=== PATIENT | female | born 1970 | race Caucasian/White ===

== ENCOUNTER 2017-10-26 21:26 | Inpatient (IN) | payer OTHER ==
[~2017-10-26] VITALS: Ht 165.1 cm; Wt 93.5 kg
[2017-10-26 22:09] VITALS: BP 138/84; PULSE 103; RESP 22; TEMP 97.7; O2SAT 91
[2017-10-26 22:25] VITALS: O2SAT 94
[2017-10-26] MEDS: RESP: ALBUTEROL 2.5 MG/IPRATROPIUM 0.5 MG NEB (SCH) INH ×2 (22:26→22:27)
[2017-10-26 22:47] VITALS: O2SAT 96
[2017-10-26 22:50] LABS: AUTOMATED NEUTROPHIL # 7.9 TH/MM3 (1.8-7.7); BASOPHIL # 0.1 TH/MM3 (0-0.2); BASOPHIL % 1.2 % (0.0-2.0); EOSINOPHIL # 0.2 TH/MM3 (0-0.4); EOSINOPHIL % 1.8 % (0.0-4.0); HEMATOCRIT 39.7 % (35.0-46.0); HEMOGLOBIN 13.6 GM/DL (11.6-15.3); LYMPH % 19.5 % (9.0-44.0); LYMPHOCYTE # 2.2 TH/MM3 (1.0-4.8); MEAN CELL VOLUME 100.1 FL (80.0-100.0); MEAN CORPUSCULAR HEMOGLOBIN 34.3 PG (27.0-34.0); MEAN CORPUSCULAR HGB CONC 34.3 % (32.0-36.0); MEAN PLATELET VOLUME 6.6 FL (7.0-11.0); MONO % 8.2 % (0.0-8.0); MONOCYTE # 0.9 TH/MM3 (0-0.9); NEUT % 69.3 % (16.0-70.0); PLATELET COUNT 359 TH/MM3 (150-450); RED BLOOD COUNT 3.97 MIL/MM3 (4.00-5.30); RED CELL DISTRIBUTION WIDTH 12.6 % (11.6-17.2); WHITE BLOOD COUNT 11.4 TH/MM3 (4.0-11.0)
--- NOTE | 2017-10-26 22:53 | PD ---
HPI Chief Complaint: Respiratory Symptoms Time Seen by Provider: 22:38 Travel History International Travel<30 days: No Contact w/Intl Traveler<30days: No Traveled to known affect area: No History of Present Illness HPI The patient is a 47 year old female who presents to the [facility] emergency department with a history of cough, congestion that began 4-6 weeks ago. 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 She reports that she briefly improved and then had recurrence of symptoms. She reports that over the last 2 weeks her symptoms have been much worse. She reports that she feels short of breath with exertion. She reports that her cough is productive of yellow sputum. The patient reports having facial pressure over her maxillary sinuses. She reports having a yellow nasal discharge. She reports having a sore throat with postnasal drip. The patient reports that she smokes 1 pack of cigarettes daily. She denies having any known fevers. She reports having chest tightness, however no other chest pain. On review of systems otherwise, she denies having any neck pain or stiffness, abdominal pain, vomiting, diarrhea , urinary symptoms, or neurologic symptoms. 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 ?: Not Past Surgical History Narrative Surgical The patient's past surgical history is significant for bilateral tubal ligation. Social History Alcohol Use: No Tobacco Use: Yes (1 pack per day) Substance Use: No Allergies-Medications (Allergen,Severity, Reaction): Coded Allergies: No Known Allergies (Unverified , 10/26/17) Reported Meds & Prescriptions Reported Meds & Active Scripts Active Reported Valtrex (Valacyclovir HCl) 1,000 Mg Tab Unknown Dose PO BID Narrative Medication Valtrex, Flonase, Zyrtec Review of Systems Except as stated in HPI: all other systems reviewed are Neg General / Constitutional: No: Fever Eyes: No: Visual changes HENT: Positive: Rhinorrhea, Congestion, No: Headaches Cardiovascular: Positive: Dyspnea on exertion, No: Chest Pain or Discomfort Respiratory: Positive: Cough, Shortness of Breath, Wheezing, Sneezing Gastrointestinal: No: Nausea, Vomiting, Diarrhea, Abdominal Pain Genitourinary: No: Dysuria Musculoskeletal: No: Pain Skin: No Rash Neurologic: No: Weakness, Focal Abnormalities, Change in Mentation, Slurred Speech, Sensory Disturbance Psychiatric: No: Depression Endocrine: No: Polydipsia Hematologic/Lymphatic: No: Easy Bruising Physical Exam Narrative General: The patient is a well-developed well-nourished female in no acute distress. Head and Neck exam: Head is normocephalic atraumatic. Eyes: EOMI, pupils are equal round and reactive to light. Nose: Midline septum with erythematous edematous nasal mucosa and a clear nasal discharge. Mouth: Dentition unremarkable. Moist mucus membranes. Posterior oropharynx is not erythematous. No tonsillar hypertrophy. Uvula midline. Airway patent. Neck: No palpable lymphadenopathy. No nuchal rigidity. No thyromegaly. Cardiovascular: Sinus tachycardia in the low 100 without murmurs, gallops, or rubs. No pulse deficit to the extremities on simultaneous auscultation and palpation of her radial artery. Lungs: Soft expiratory wheezes are audible throughout bilateral lung durant, no rhonchi , crackles are intermittently audible bilaterally and seem to clear with coughing. Abdomen: Soft, without tenderness to palpation in all 4 quadrants of the abdomen. No guarding, rebound, or rigidity. Normal bowel sounds are audible. No tenderness on palpation of McBurney's point. Extremities: No clubbing, cyanosis, or edema. 2+ pulses in all 4 extremities. No calf tenderness on palpation. Back: No spinous process tenderness to palpation. No costovertebral angle tenderness to palpation. Neurologic Exam: Grossly nonfocal. Skin Exam: No rash noted. Intact skin that is warm and dry. Data Data Last Documented VS Vital Signs Date Time Temp Pulse Resp B/P (MAP) Pulse Ox O2 Delivery O2 Flow Rate FiO2 10/27/17 01:05 83 Room Air 10/26/17 22:47 2.00 10/26/17 22:09 97.7 103 22 138/84 (102) Orders Orders Complete Blood Count With Diff (10/26/17 22:12) Basic Metabolic Panel (Bmp) (10/26/17 22:12) B-Type Natriuretic Peptide (10/26/17 22:12) Act Partial Throm Time (Ptt) (10/26/17 22:12) Prothrombin Time / Inr (Pt) (10/26/17 22:12) Magnesium (Mg) (10/26/17 22:12) Ckmb (Isoenzyme) Profile (10/26/17 22:12) Troponin I (10/26/17 22:12) Electrocardiogram (10/26/17 22:12) Chest, Pa & Lat (10/26/17 22:12) Albuterol-Ipratropium Neb (Duoneb Neb) (10/26/17 22:15) Sodium Chloride 0.9% Flush (Ns Flush) (10/26/17 23:15) Methylprednisolone So Succ Inj (Solumedr (10/26/17 23:15) Ceftriaxone Inj (Rocephin Inj) (10/26/17 23:15) Azithromycin Inj (Zithromax Inj) (10/26/17 23:15) CKMB (10/26/17 22:35) CKMB% (10/26/17 22:35) Ct Pulmonary Angiogram (10/27/17 01:04) Labs Laboratory Tests Test 10/26/17 22:35 White Blood Count 11.4 TH/MM3 Red Blood Count 3.97 MIL/MM3 Hemoglobin 13.6 GM/DL Hematocrit 39.7 % Mean Corpuscular Volume 100.1 FL Mean Corpuscular Hemoglobin 34.3 PG Mean Corpuscular Hemoglobin Concent 34.3 % Red Cell Distribution Width 12.6 % Platelet Count 359 TH/MM3 Mean Platelet Volume 6.6 FL Neutrophils (%) (Auto) 69.3 % Lymphocytes (%) (Auto) 19.5 % Monocytes (%) (Auto) 8.2 % Eosinophils (%) (Auto) 1.8 % Basophils (%) (Auto) 1.2 % Neutrophils # (Auto) 7.9 TH/MM3 Lymphocytes # (Auto) 2.2 TH/MM3 Monocytes # (Auto) 0.9 TH/MM3 Eosinophils # (Auto) 0.2 TH/MM3 Basophils # (Auto) 0.1 TH/MM3 CBC Comment DIFF FINAL Differential Comment Prothrombin Time 9.4 SEC Prothromb Time International Ratio 0.9 RATIO Activated Partial Thromboplast Time 34.1 SEC Blood Urea Nitrogen 3 MG/DL Creatinine 0.53 MG/DL Random Glucose 80 MG/DL Calcium Level 8.6 MG/DL Magnesium Level 1.9 MG/DL Sodium Level 132 MEQ/L Potassium Level 4.0 MEQ/L Chloride Level 98 MEQ/L Carbon Dioxide Level 23.6 MEQ/L Anion Gap 10 MEQ/L Estimat Glomerular Filtration Rate 123 ML/MIN Total Creatine Kinase 225 U/L Creatine Kinase MB 5.4 NG/ML Creatine Kinase MB % 2.4 % Troponin I LESS THAN 0.02 NG/ML B-Type Natriuretic Peptide 31 PG/ML MDM Medical Decision Making Medical Screen Exam Complete: Yes Emergency Medical Condition: Yes Medical Record Reviewed: Yes Interpretation(s) Last Impressions Chest X-Ray 10/26/172211 Signed Impressions: Service Date/Time: Thursday, October 26, 2017 23:56 - CONCLUSION: No acute disease. Benjamin Glez MD Differential Diagnosis Pneumonia, versus COPD, versus new onset congestive heart failure, versus acute coronary syndrome, versus pulmonary embolism Narrative Course During the course of the patient's emergency department visit, the patient's history, examination, and differential diagnosis were reviewed with the patient. The patient was placed on a cardiac cath tech with oximetry and frequent blood pressure monitoring. The patient had IV access obtained and blood work sent for analysis. The patient's initial room air O2 saturation was 91%. The patient was provided duo nebs 3, Solu-Medrol 125 mg IV, Rocephin 2 g IV, Zithromax 500 mg IV. The patient was continued on 2 L nasal cannula O2. The patient's laboratory studies were reviewed and remarkable for a white count of 11.4, hemoglobin 13.6, platelets 359 with 8.2 monocytes, CMP is remarkable for sodium of 132, BUN 3, CPK 225, MB percent 2.4, magnesium 1.9, BNP is 31, PT 9.4, PTT 34.1 Radiology studies were reviewed and remarkable for a chest x-ray that shows no acute cardiopulmonary disease. This was discontinued in order for the patient to go to the bathroom. Unfortunately, the patient again desaturated down to 83%. The patient was placed on 2 L nasal cannula O2 again. CTA to rule out PE has also been ordered. The patient's results were discussed with the patient, including the plan of care. I explained that further testing and/ or monitoring is indicated based on the patient's history, examination, and/ or laboratory findings. Therefore, I recommended admission for additional evaluation. The patient expressed understanding and was agreeable with this plan. The patient was admitted to the hospital in guarded condition and sent to a bed under the care of the [facility] service. Physician Communication Physician Communication The patient's case including history, pertinent physical examination findings, and laboratory studies were discussed with Dr. Lopez. It was agreed that the patient would be admitted to the [facility] service. Diagnosis Primary Impression: COPD exacerbation Additional Impression: Hypoxemia Admitting Information Admitting Physician Requests: Admit Estelita Stephenson MD Oct 26, 2017 22:53
[2017-10-26 23:02] LABS: INTERNATIONAL NORMALIZED RATIO 0.9 RATIO; PROTHROMBIN TIME - PATIENT 9.4 SEC (9.8-11.6)
[2017-10-26 23:12] LABS: BICARBONATE 23.6 MEQ/L (21.0-32.0); BLOOD UREA NITROGEN 3 MG/DL (7-18); CALCIUM 8.6 MG/DL (8.5-10.1); CHLORIDE 98 MEQ/L (98-107); CREATININE 0.53 MG/DL (0.50-1.00); GLOMERULAR FILTRATION RATE 123 ML/MIN (>89); GLUCOSE,RANDOM 80 MG/DL (74-106); MAGNESIUM 1.9 MG/DL (1.5-2.5); SODIUM (NA) 132 MEQ/L (136-145)
[2017-10-26] MEDS ORDERED: cefTRIAXone INJ 2,000 MG in SODIUM CHLORIDE 0.9% INJ 100 ML IV ONE (23:15)
[2017-10-26] MEDS ORDERED: SODIUM CHLORIDE 0.9% FLUSH 10 ML FLUSH IVF PRN (23:15)
[2017-10-26] MEDS ORDERED: AZITHROMYCIN INJ 500 MG in SODIUM CHLOR 0.9% 250 ML INJ 250 ML IV ONE (23:15)
[2017-10-26] MEDS ORDERED: methylPREDNISolone SOD SUCC 125 MG/2 ML VIAL IV PUSH ONE (23:15)
[2017-10-26 23:17] LABS: TROPONIN I LESS THAN 0.02 NG/ML (0.02-0.05)
[2017-10-26] MEDS ORDERED: VALT1TAB PO (23:21)
[2017-10-27] VITALS (19 sets, daily range): BP systolic 148–206; BP diastolic 73–102; PULSE 59–116; RESP 16–21; TEMP 97.3–99; O2SAT 83–98
--- NOTE | 2017-10-27 00:09 | RADRPT ---
EXAM DATE/TIME: 10/26/2017 23:56 [facility] COMPARISON: No previous studies available for comparison. INDICATIONS : Shortness of breath. MEDICAL HISTORY : None. SURGICAL HISTORY : None. ENCOUNTER: Initial ACUITY: 1 day PAIN SCORE: 0/10 LOCATION: Bilateral chest FINDINGS: PA and lateral views of the chest demonstrate the lungs to be symmetrically aerated without evidence of mass, infiltrate or effusion. The cardiomediastinal contours are unremarkable. Osseous structure s are intact. CONCLUSION: No acute disease. Benjamin Glez MD on October 27, 2017 at 0:06 Board Certified Radiologist. This report was verified electronically.
[2017-10-27] MEDS ORDERED: RESP: ALBUTEROL 2.5 MG/3 ML NEB (PRN) INH (01:15)
[2017-10-27] MEDS ORDERED: IOHEXOL 350 MG/ML 10 ML VIAL (for RAD DIAG) IVCONTRAST ONE (02:12)
--- NOTE | 2017-10-27 02:22 | RADRPT ---
EXAM DATE/TIME: 10/27/2017 02:01 [facility] COMPARISON: No previous studies available for comparison. INDICATIONS : Shortness of breath, cough and congestion. IV CONTRAST: 75 cc Omnipaque 350 (iohexol) IV RADIATION DOSE: 10.74 CTDIvol (mGy) MEDICAL HISTORY : None SURGICAL HISTORY : None. ENCOUNTER: Initial ACUITY: 1 month PAIN SCALE: 0/10 LOCATION: chest TECHNIQUE: Volumetric scanning of the chest was performed using a pulmonary embolism protocol MIP images were re constructed. Using automated exposure control and adjustment of the mA and/or kV according to patien t size, radiation dose was kept as low as reasonably achievable to obtain optimal diagnostic quality images. DICOM format image data is available electronically for review and comparison. Follow-up recommendations for detected pulmonary nodules are based at a minimum on nodule size and pa tient risk factors according to Fleischner Society Guidelines. FINDINGS: PULMONARY ARTERIES: No filling defects are seen in the pulmonary arteries through the segmental level. LUNGS: There is no consolidation or pneumothorax . No concerning pulmonary nodule is visualized. PLEURAE: There is no pleural thickening or pleural effusion. MEDIASTINUM: There is good visualization of the great vessels of the middle mediastinum. No evidence of mediastin al or hilar adenopathy/mass. MUSCULOSKELETAL: Within normal limits for patient age. MISCELLANEOUS: The visualized upper abdominal organs demonstrate no acute abnormality. CONCLUSION: Normal examination. Benjamin Glez MD on October 27, 2017 at 2:17 Board Certified Radiologist. This report was verified electronically.
[2017-10-27] MEDS: methylPREDNISolone SOD SUCC 125 MG/2 ML VIAL IV PUSH SCH ×4 (02:24→20:36)
[2017-10-27] MEDS: RESP: ALBUTEROL 2.5 MG/IPRATROPIUM 0.5 MG NEB (SCH) INH ×5 (02:53→21:01)
--- NOTE | 2017-10-27 07:45 | EKG ---
Date Performed: 10/26/2017 Time Performed: 22:42:13 PTAGE: 47 years EKG: SINUS TACHYCARDIA ABNORMAL RHYTHM ECG NO PREVIOUS TRACING DOCTOR: Anastacio Frey Interpretating Date/Time 10/27/2017 07:45:10
[2017-10-27] MEDS: SODIUM CHLORIDE 0.9% FLUSH 10 ML FLUSH IV FLUSH SCH ×2 (08:10→20:35)
--- NOTE | 2017-10-27 08:11 | HHI.HP ---
[facility] Service [facility] Primary [facility] Physician Unknown Admission Diagnosis COPD exacerbation Diagnoses: Chief Complaint: Shortness of breath Travel History International Travel<30 Days: No Contact w/Intl Traveler <30 Da: No Traveled to Known Affected Are: No History of Present Illness Patient is a 47-year-old female healthy smoker 1 pack came to the ER complaining of shortness of breath. His symptoms started about 4 weeks ago when patient developed cough and colds/sinus infection. Patient was seen at urgent care clinic and was given 7 days course of amoxicillin, cough meds and some allergy medications. Patient states symptoms felt better and was doing well until about a week prior to admission cough recur this time productive of yellowish sputum. Patient denies any fever or chills but complains of some sweating. Does complain mainly of sore throat, "can't stop coughing" and couldn 't breath Persistence prompted consult to ER upon evaluation was noted to have diffuse wheezing and was given 3 treatment course duonebulization that. A CTA was also done which was negative for PE. Patient also received 1 dose Solu- Medrol IV. O2 sats at rest was good however when we walked her O2 sats dropped to 87%. Patient states currently feeling better. On exam with still some rhonchi. Patient admitted for further evaluation and management. Patient denies any chronic medical history of hypertension, diabetes or CAD or CVA. Patient has history of HPV infection and is on chronic suppression therapy with Valtrex 500 mg daily since 2012. Review of Systems Constitutional: DENIES: Fever, Weight loss, Chills, Change in appetite Eyes: DENIES: Blurred vision, Double Vision Ears, nose, mouth, throat: DENIES: Tinnitus, Ear Pain, Epistaxis, Odynophagia Respiratory: DENIES: Cough, Hemoptysis, Sputum production, Shortness of breath Cardiovascular: DENIES: Chest pain, Palpitations, Dyspnea on Exertion, Lower Extremity Edema, Orthopnea Gastrointestinal: DENIES: Black stools, Bloody stools, Difficulty Swallowing, Anorexia Genitourinary: DENIES: Urgency, Hematuria, Vaginal discharge Musculoskeletal: DENIES: Joint pain, Stiffness Integumentary: DENIES: Pruritus Hematologic/lymphatic: DENIES: Bruising Immunologic/allergic: DENIES: Urticaria Neurologic: DENIES: Headache, Speech Problems, Tremor Psychiatric: DENIES: Suicidal Ideation, Homicidal Ideation Past Family Social History Past Medical History HPV infection on chronic suppression therapy with Valtrex 500 mg daily Recently diagnosed with hypertension and was prescribed Diovan 40 mg daily. Past Surgical History Tubal ligation Reported Medications Valtrex 500 mg daily Diovan 40 mg daily patient has medications but not started yet. Allergies: Coded Allergies: No Known Allergies (Unverified , 10/26/17) Family History Family history both parents has diabetes Mother has some "heart issues" Social History Smoker one pack per day Drinks beer every day around 9 bottles, denies any history of DTs next and denies substance abuse Physical Exam Vital Signs Vital Signs Date Time Temp Pulse Resp B/P (MAP) Pulse Ox O2 Delivery O2 Flow Rate FiO2 10/27/17 07:32 98.1 99 19 158/73 (101) 93 10/27/17 04:40 148/78 (101) 10/27/17 03:08 98.2 104 18 179/84 (115) 94 10/27/17 02:12 95 Room Air 2.00 10/27/17 01:05 83 Room Air 10/26/17 22:47 96 Room Air 2.00 10/26/17 22:25 94 Nasal Cannula 2.00 10/26/17 22:09 97.7 103 22 138/84 (102) 91 Physical Exam GENERAL: Awake alert oriented 3 patient up and ambulating, states feeling better, plethoric SKIN: No rashes, ecchymoses or lesions. Cool and dry. HEAD: Atraumatic. Normocephalic. No temporal or scalp tenderness. EYES: Pupils equal round and reactive. Extraocular motions intact. No scleral icterus. No injection or drainage. ENT: Nose without bleeding, purulent drainage or septal hematoma. Throat without erythema, tonsillar hypertrophy or exudate. Uvula midline. Airway patent. NECK: Trachea midline. No JVD or lymphadenopathy. Supple, nontender, no meningeal signs. CARDIOVASCULAR: Regular rate and rhythm without murmurs, gallops, or rubs. RESPIRATORY: Decreased breath sounds bilaterally, no wheezes + rhonchis GASTROINTESTINAL: Abdomen soft, non-tender, No guarding. MUSCULOSKELETAL: Extremities without clubbing, cyanosis, or edema. No joint tenderness, effusion, or edema noted. No calf tenderness. Negative Homans sign bilaterally. NEUROLOGICAL: Awake and alert. Cranial nerves II through XII intact. Motor and sensory grossly within normal limits. Five out of 5 muscle strength in all muscle groups. Normal speech. Laboratory Laboratory Tests Test 10/26/17 22:35 White Blood Count 11.4 Red Blood Count 3.97 Hemoglobin 13.6 Hematocrit 39.7 Mean Corpuscular Volume 100.1 Mean Corpuscular Hemoglobin 34.3 Mean Corpuscular Hemoglobin Concent 34.3 Red Cell Distribution Width 12.6 Platelet Count 359 Mean Platelet Volume 6.6 Neutrophils (%) (Auto) 69.3 Lymphocytes (%) (Auto) 19.5 Monocytes (%) (Auto) 8.2 Eosinophils (%) (Auto) 1.8 Basophils (%) (Auto) 1.2 Neutrophils # (Auto) 7.9 Lymphocytes # (Auto) 2.2 Monocytes # (Auto) 0.9 Eosinophils # (Auto) 0.2 Basophils # (Auto) 0.1 CBC Comment DIFF FINAL Differential Comment Prothrombin Time 9.4 Prothromb Time International Ratio 0.9 Activated Partial Thromboplast Time 34.1 Blood Urea Nitrogen 3 Creatinine 0.53 Random Glucose 80 Calcium Level 8.6 Magnesium Level 1.9 Sodium Level 132 Potassium Level 4.0 Chloride Level 98 Carbon Dioxide Level 23.6 Anion Gap 10 Estimat Glomerular Filtration Rate 123 Total Creatine Kinase 225 Creatine Kinase MB 5.4 Creatine Kinase MB % 2.4 Troponin I LESS THAN 0.02 B-Type Natriuretic Peptide 31 Result Diagram: 10/26/17223410/26/172234 Imaging Last Impressions CT Angiography 10/27/17 0104 Signed Impressions: Service Date/Time: Friday, October 27, 2017 02:01 - CONCLUSION: Normal examination. Benjamin Glez MD Chest X-Ray 10/26/172211 Signed Impressions: Service Date/Time: Thursday, October 26, 2017 23:56 - CONCLUSION: No acute disease. MD Tony Cotto VTE Risk Assessment Tony VTE Risk Assessment: Mod/High Risk (score >= 2) Caprini Risk Assessment Model Point Value = 1 Point Value = 2 Point Value = 3 Point Value = 5 Age 41-60 Minor surgery BMI > 25 kg/m2 Swollen legs Varicose veins or History of unexplained or recurrent spontaneous Oral contraceptives or hormone replacement Sepsis (< 1 month) Serious lung disease, including pneumonia (< 1 month) Abnormal pulmonary function Acute myocardial infarction Congestive heart failure (< 1 month) History of inflammatory bowel disease Medical patient at bed rest Age 61-74 Arthroscopic surgery Major open surgery (> 45 min) Laparoscopic surgery (> 45 min) Malignancy Confined to bed (> 72 hours) Immobilizing plaster cast Central venous access Age >= 75 History of VTE Family history of VTE Factor V Leiden Prothrombin [id number] Lupus anticoagulant Anticardiolipin antibodies Elevated serum homocysteine Heparin-induced thrombocytopenia Other congenital or acquired thrombophilia Stroke (< 1 month) Elective arthroplasty Hip, pelvis, or leg fracture Acute spinal cord injury (< 1 month) Prophylaxis Regimen Total Risk Factor Score Risk Level Prophylaxis Regimen 0-1 Low Early ambulation 2 Moderate Order ONE of the following: *Sequential Compression Device (SCD) *Heparin 5000 units SQ BID 3-4 Higher Order ONE of the following medications: *Heparin 5000 units SQ TID *Enoxaparin/Lovenox 40 mg SQ daily (WT < 150 kg, CrCl > 30 mL/min) *Enoxaparin/Lovenox 30 mg SQ daily (WT < 150 kg, CrCl > 10-29 mL/min) *Enoxaparin/Lovenox 30 mg SQ BID (WT < 150 kg, CrCl > 30 mL/min) AND/OR *Sequential Compression Device (SCD) 5 or more Highest Order ONE of the following medications: *Heparin 5000 units SQ TID (Preferred with Epidurals) *Enoxaparin/Lovenox 40 mg SQ daily (WT < 150 kg, CrCl > 30 mL/min) *Enoxaparin/Lovenox 30 mg SQ daily (WT < 150 kg, CrCl > 10-29 mL/min) *Enoxaparin/Lovenox 30 mg SQ BID (WT < 150 kg, CrCl > 30 mL/min) AND *Sequential Compression Device (SCD) Assessment and Plan Assessment and Plan 47-year-old female with history of heavy smoking presenting with cough shortness of breath with hypoxemia Acute respiratory failure likely secondary to acute bronchitis likely with underlying COPD with history of heavy smoking- - O2 nasal cannula 2 L. Walked her - 02- sats dropped. - Chest x-ray reviewed. 12-lead EKG sinus tachycardia and no acute ST-T wave changes. CT negative for PE. - Continue Solu-Medrol 60 mg IV every 6 - DuoNeb treatments every 4 scheduled and when necessary every 2 - Continue on Zithromax 500 mg by mouth daily - Check PFTs. - Tussionex bid - CXR film reviewed - may need to do a walk test prior to DC- to see if qualify for home 02 History of hypertension recently diagnosed - EKG no acute STTWchanges - Diovan 40 mg by mouth daily- was given a script for this and not started yet - will start here and monitor and adjust - 2 m sodium diet - clonidine 0.1 mg po q 6 prn for SBP 160/90 Alcohol use. - Check baseline LFTs. Monitor for signs of DTs. -CIWA protocol Obesity with BMI of 33.4. Patient advised on weight reduction and smoking cessation Smoker patient counseled. Nicotine patch DVT prophylaxis with heparin subcutaneous 5000 every 12 hours Pepcid 20 mg twice a day by mouth for GI prophylaxis. Out of bed to chair and ambulate around room as tolerated Code Status full Discussed Condition With patient Physician Certification 2 Midnight Certification Type: Admission for Inpatient Services Order for Inpatient Services The services are ordered in accordance with Medicare regulations or non- Medicare payer requirements, as applicable. In the case of services not specified as inpatient-only, they are appropriately provided as inpatient services in accordance with the 2-midnight benchmark. Estimated LOS (days): 3 days is the estimated time the patient will need to remain in the hospital, assuming treatment plan goals are met and no additional complications. Post-Hospital Plan: Not yet determined Tim Schuler MD Oct 27, 2017 08:11
[2017-10-27] MEDS: HEPARIN SODIUM - SQ 10,000 UNITS/ML VIAL SQ SCH ×2 (09:30→20:42)
[2017-10-27] MEDS: FAMOTIDINE 20 MG TAB PO SCH ×2 (09:30→20:42)
[2017-10-27] MEDS: CHLORPHENIR/HYDROCOD LIQUID 8 MG/10 MG/5 ML CUP PO SCH ×2 (10:00→21:43)
[2017-10-27] MEDS: VALSARTAN 40 MG TAB PO SCH (10:00)
[2017-10-27] MEDS: valACYclovir HCL 500 MG TAB PO SCH (10:00)
[2017-10-27] MEDS ORDERED: LORazepam 2 MG TAB PO PRN (15:00)
[2017-10-27] MEDS ORDERED: LORazepam 1 MG TAB PO PRN (15:00)
[2017-10-27] MEDS ORDERED: FLUMAZENIL 0.5 MG/5 ML VIAL IV PUSH PRN (15:00)
[2017-10-27] MEDS ORDERED: LORazepam 2 MG/ML VIAL IV PUSH PRN ×4 (15:00)
[2017-10-27] MEDS: cloNIDine HCL 0.1 MG TAB PO PRN (15:29)
[2017-10-27] MEDS ORDERED: chlordiazePOXIDE 25 MG CAP PO ONE (17:00)
[2017-10-27] MEDS: NICOTINE 7 MG/24 HR PATCH T-DERMAL SCH (17:07)
[2017-10-27] MEDS ORDERED: hydrALAZINE HCL 20 MG/ML VIAL IV PUSH ONE (19:30)
[2017-10-27] MEDS: SODIUM CHLORIDE 0.9% FLUSH 10 ML FLUSH IV FLUSH PRN (20:37)
[2017-10-27] MEDS ORDERED: REMOVE OLD PATCH T-DERMAL SCH (21:00)
[2017-10-27] MEDS ORDERED: AZITHROMYCIN 250 MG TAB PO SCH (23:00)
[2017-10-28] VITALS (7 sets, daily range): BP systolic 161–200; BP diastolic 78–91; PULSE 87–105; RESP 16–18; TEMP 97.3–97.8; O2SAT 92–97
[2017-10-28] MEDS: RESP: ALBUTEROL 2.5 MG/IPRATROPIUM 0.5 MG NEB (SCH) INH ×5 (00:14→15:52)
[2017-10-28] MEDS: cloNIDine HCL 0.1 MG TAB PO PRN ×3 (00:15→15:24)
[2017-10-28] MEDS: methylPREDNISolone SOD SUCC 125 MG/2 ML VIAL IV PUSH SCH ×3 (01:09→15:03)
[2017-10-28] MEDS: SODIUM CHLORIDE 0.9% FLUSH 10 ML FLUSH IV FLUSH PRN (01:15)
[2017-10-28] MEDS: FAMOTIDINE 20 MG TAB PO SCH (08:22)
[2017-10-28] MEDS: VALSARTAN 40 MG TAB PO SCH (08:23)
[2017-10-28] MEDS: CHLORPHENIR/HYDROCOD LIQUID 8 MG/10 MG/5 ML CUP PO SCH (08:23)
[2017-10-28] MEDS: valACYclovir HCL 500 MG TAB PO SCH (08:23)
[2017-10-28] MEDS: SODIUM CHLORIDE 0.9% FLUSH 10 ML FLUSH IV FLUSH SCH (08:24)
[2017-10-28] MEDS: HEPARIN SODIUM - SQ 10,000 UNITS/ML VIAL SQ SCH (08:24)
[2017-10-28] MEDS: NICOTINE 7 MG/24 HR PATCH T-DERMAL SCH (08:24)
[2017-10-28 09:13] LABS: AUTOMATED NEUTROPHIL # 18.3 TH/MM3 (1.8-7.7); BASOPHIL % 0.1 % (0.0-2.0); HEMATOCRIT 38.4 % (35.0-46.0); LYMPH % 4.9 % (9.0-44.0); MEAN CORPUSCULAR HEMOGLOBIN 33.9 PG (27.0-34.0); MEAN CORPUSCULAR HGB CONC 33.9 % (32.0-36.0); MEAN PLATELET VOLUME 6.8 FL (7.0-11.0); MONO % 4.1 % (0.0-8.0); MONOCYTE # 0.8 TH/MM3 (0-0.9); NEUT % 90.9 % (16.0-70.0); PLATELET COUNT 389 TH/MM3 (150-450); RED BLOOD COUNT 3.84 MIL/MM3 (4.00-5.30); RED CELL DISTRIBUTION WIDTH 12.7 % (11.6-17.2); WHITE BLOOD COUNT 20.1 TH/MM3 (4.0-11.0)
[2017-10-28 09:48] LABS: ALBUMIN 3.4 GM/DL (3.4-5.0); AST (GOT) 15 U/L (15-37); BICARBONATE 27.2 MEQ/L (21.0-32.0); BLOOD UREA NITROGEN 5 MG/DL (7-18); CALCIUM 8.7 MG/DL (8.5-10.1); CHLORIDE 99 MEQ/L (98-107); CREATININE 0.73 MG/DL (0.50-1.00); DIRECT BILIRUBIN ADULT 0.1 MG/DL (0.0-0.2); GLOMERULAR FILTRATION RATE 85 ML/MIN (>89); GLUCOSE,RANDOM 143 MG/DL (74-106); SODIUM (NA) 134 MEQ/L (136-145)
[2017-10-28 09:51] LABS: ALKALINE PHOSPHATASE 69 U/L (45-117); ALT (GPT) 24 U/L (10-53); TOTAL BILIRUBIN ADULT 0.1 MG/DL (0.2-1.0); TOTAL PROTEIN 7.4 GM/DL (6.4-8.2)
--- NOTE | 2017-10-28 16:37 | HHI.PR ---
Subjective Remarks Patient sitting in bed stated she brief slightly better however per discussion with the nurse patient is desaturating to almost below 90s at times and needed oxygen Blood pressure also goes above 200 at points she is on Diovan along with tachycardia Objective Vitals Vital Signs Date Time Temp Pulse Resp B/P (MAP) Pulse Ox O2 Delivery O2 Flow Rate FiO2 10/28/17 15:21 87 16 200/91 (127) 97 10/28/17 14:30 Room Air 10/28/17 12:00 97.3 105 18 161/78 (105) 95 10/28/17 09:00 Nasal Cannula 2.00 10/28/17 08:13 94 Nasal Cannula 2.00 10/28/17 08:00 97.7 100 18 178/86 (116) 92 10/28/17 04:51 97.8 87 16 174/81 (112) 94 176/82 (113) 10/28/17 01:14 168/82 (110) 10/28/17 00:13 178/80 (112) 10/27/17 23:42 98.1 108 18 204/95 (131) 95 10/27/17 23:42 Room Air 10/27/17 21:35 94 21 10/27/17 21:15 180/74 (109) 10/27/17 21:00 108 184/86 (118) 10/27/17 20:45 101 181/84 (116) 10/27/17 20:30 99 185/84 (117) 10/27/17 20:10 Room Air 10/27/17 20:10 98.1 87 16 202/90 (127) 94 10/27/17 18:30 98.1 59 16 201/85 (123) 98 10/27/17 18:06 Room Air I/O 10/27/17 10/27/17 10/27/17 10/28/17 10/28/17 10/28/17 07:00 15:00 23:00 07:00 15:00 23:00 Intake Total 350 ml 240 ml Output Total 600 ml 600 ml Balance 350 ml -360 ml -600 ml Intake Oral 240 ml IV Total 350 ml Output Urine Total 600 ml 600 ml # Voids 1 Result Diagram: 10/28/1744 10/28/17 0844 Objective Remarks GENERAL: This is a well-nourished, well-developed patient, in no apparent distress. SKIN: No rashes, warm and dry HEAD: Atraumatic. Normocephalic. EYES: Pupils equal round and reactive. Extraocular motions intact. No scleral icterus. ENT: Nose without bleeding, or drainage, Airway patent. NECK: Trachea midline. Supple CARDIOVASCULAR: Regular tacky and rhythm without murmurs, gallops, or rubs. RESPIRATORY: Fair air entry bilaterally. No wheezes, rales, or rhonchi. GASTROINTESTINAL: Abdomen soft, non-tender, nondistended. Positive bowel sounds MUSCULOSKELETAL: Extremities without clubbing, cyanosis, or edema. Pedal pulses appreciated NEUROLOGICAL: Awake and alert. Moves all extremity. Normal speech.no focal neurological deficit A/P Assessment and Plan 47-year-old female with history of heavy smoking presenting with cough shortness of breath with hypoxemia 10/28: Add Lopressor to control blood pressure and heart rate, home O2 walking test in a.m. Acute respiratory failure likely secondary to acute bronchitis likely with underlying COPD with history of heavy smoking- - O2 nasal cannula 2 L. Walked her - - sats dropped. - Chest x-ray reviewed. 12-lead EKG sinus tachycardia and no acute ST-T wave changes. CT negative for PE. -Change Solu Medrol to 40 mg twice daily - DuoNeb treatments every 4 scheduled and when necessary every 2 - Continue on Zithromax 500 mg by mouth daily - Check PFTs. - Tussionex bid - CXR film reviewed -Home O2 walking test in a.m. History of hypertension recently diagnosed - EKG no acute ST changes - Diovan 40 mg by mouth daily- was given a script for this and not started yet - will start here and monitor and adjust - 2 m sodium diet - clonidine 0.1 mg po q 6 prn for SBP 160/90, -Added Lopressor to help control blood pressure and heart rate Alcohol use. - Check baseline LFTs. Monitor for signs of DTs. -[facility] protocol Obesity with BMI of 33.4. Patient advised on weight reduction and smoking cessation Smoker patient counseled. Nicotine patch DVT prophylaxis with heparin subcutaneous 5000 every 12 hours Pepcid 20 mg twice a day by mouth for GI prophylaxis. Out of bed to chair and ambulate around room as tolerated Discharge Planning addendum : on 10/28 pt left AMA disposition : left AMA Condition on discharge: Guarded Regular Diet as tolerated Ad Jeanette activity Rx written:none Follow-up with primary care physician Tom Gupta MD Oct 28, 2017 16:37
[2017-10-28] MEDS ORDERED: ENALAPRILAT 1.25 MG/ML VIAL IV PUSH PRN (16:45)
[2017-10-28] MEDS ORDERED: methylPREDNISolone SOD SUCC 125 MG/2 ML VIAL IV PUSH SCH (21:00)
[2017-10-28] MEDS ORDERED: METOPROLOL TARTRATE 25 MG TAB PO SCH (21:00)
== END 2017-10-28 17:02 | disposition left against medical advice (07) | DRG 189 ==
LOC: NEPC 21:26 → UNDOADMIN 10-27 01:07 → NEDA 10-27 01:07 → INTOOBSV 10-27 01:17 → OBSVTOIN 10-27 03:00 → NEDA 10-27 03:11 → NEDH 10-27 05:06 → NEDA 10-27 15:39 → N04A 10-27 15:41
PROVIDERS: ADMIT Hospitalist; ATTEND Hospitalist
DX: J96.01 Acute respiratory failure with hypoxia (principal); J44.0 Chronic obstructive pulmonary disease with (acute) lower respiratory infection; I10 Essential (primary) hypertension; J20.9 Acute bronchitis, unspecified; R00.0 Tachycardia, unspecified; Z68.33 Body mass index [BMI] 33.0-33.9, adult; E66.9 Obesity, unspecified; F17.210 Nicotine dependence, cigarettes, uncomplicated; J30.2 Other seasonal allergic rhinitis
CPT/HCPCS: 36600; 71046; 71275; 80048; 80053; 80307; 82248; 82550; 82552; 82805; 83735; 83880; 84484; 85025; 85610; 85730; 93005; 94640; 94664; 96365; 96368; 96375; J0360; J0456; J0696; J2930; J7050; Q9967